=== PATIENT | female | born 1980 | race Caucasian/White ===

== ENCOUNTER → 2020-01-12 | Outpatient (CLI) | payer MEDICAID ==
[~2020-01-12] MED LIST: DULO20CA18 PO; ESCI20TA43 PO; KEPP250 PO; KEPP500 PO; PRAZ1CAP2 PO; TRAZ-251 PO; tylenol # 3 PO
== END | disposition home or self-care (01) ==
LOC: LAB 12:40
PROVIDERS: ATTEND Neurological Surgery
DX: Z01.818 Encounter for other preprocedural examination (principal); Z11.59 Encounter for screening for other viral diseases
CPT/HCPCS: C9803; U0003

== ENCOUNTER 2020-01-15 06:19 | Inpatient (IN) | payer MEDICAID ==
[~2020-01-15] VITALS: Ht 152.4 cm; Wt 73.5 kg
[2020-01-15] VITALS (50 sets, daily range): BP systolic 1–133; BP diastolic -2–75
[~2020-01-15 06:19] MED LIST changes: -KEPP250 PO
[2020-01-15] MEDS ORDERED: THROMBIN (BOVINE) 5000 UNITS/VIAL TOP ONE (07:06)
[2020-01-15] MEDS ORDERED: NORMAL SALINE 0.9% 10 ML SYR ONE (07:07)
[2020-01-15] MEDS ORDERED: SODIUM CHLORIDE 0.9% 2,000 ML ONE (07:07)
[2020-01-15] MEDS ORDERED: BACITRACIN 50,000 UNITS/VIAL ONE (07:07)
[2020-01-15] MEDS ORDERED: LIDOCAINE HCL/EPINEPHRINE 1%-EPI 1:100,000 20 ML VIAL ONE (07:07)
[2020-01-15] MEDS ORDERED: LACTATED RINGERS 1,000 ML IV SCH (07:30)
[2020-01-15 07:35] LABS: UCG SCREEN NEGATIVE
[2020-01-15] MEDS ORDERED: MORPHINE SULFATE 4 MG/ML CPJ (NOT FOR IM USE) IV PRN (10:15)
[2020-01-15] MEDS ORDERED: NICARDIPINE 100 MG in SODIUM CHLORIDE 0.9% 60 ML IV PRN (10:15)
[2020-01-15] MEDS ORDERED: HYDROMORPHONE HCL/PF 2MG/ML (OR) ONE (10:50)
[2020-01-15] MEDS ORDERED: ROCURONIUM BROMIDE 10MG/ML VIAL 5ML IV ONE (10:50)
[2020-01-15] MEDS ORDERED: CEFAZOLIN SODIUM 1000MG/VIAL ONE (10:51)
[2020-01-15] MEDS ORDERED: CLINDAMYCIN 600 MG in DEXTROSE 5% WATER 50 ML IV SCH (11:15)
[2020-01-15] MEDS ORDERED: HYDRALAZINE 20MG/ML VIAL ONE ×2 (11:23→12:54)
[2020-01-15] MEDS ORDERED: VECURONIUM BROMIDE 10 MG/VIAL IV ONE (11:43)
[2020-01-15] MEDS ORDERED: METOPROLOL TARTRATE 5MG/5ML VIAL IV ONE (11:43)
[2020-01-15] MEDS ORDERED: NEOSTIGMINE METHYLSULFATE 1MG/ML 10 ML VIAL ONE (12:17)
[2020-01-15] MEDS ORDERED: GLYCOPYRROLATE 0.2 MG/ML 2ML VIAL ONE (12:18)
[2020-01-15] MEDS ORDERED: HYDROMORPHONE HCL/PF 2MG/ML CPJ IV SCH (12:45)
[2020-01-15] MEDS ORDERED: ONDANSETRON INJ IV PRN (13:00)
[2020-01-15] MEDS ORDERED: NALOXONE INJ IV PRN (13:00)
[2020-01-15] MEDS: DEXT 5%/LACTATED RINGERS 1,000 ML IV SCH ×2 (13:15→23:01)
[2020-01-15] MEDS: HYDROMORPHONE PCA 10MG/50ML IV PRN (13:20)
[2020-01-15] MEDS: DEXAMETHASONE 4MG/ML 1ML VIAL IV SCH ×3 (13:33→23:19)
[2020-01-15] MEDS: CLINDAMYCIN 600MG PREMIX 50 ML IV SCH ×2 (13:34→21:48)
[2020-01-15] MEDS ORDERED: IPRATROPIUM/ALBUTEROL 0.5-3(2.5)MG/3ML NEB HHN PRN (16:00)
[2020-01-15] MEDS: LEVETIRACETAM 500MG TABLET PO SCH (20:12)
[2020-01-15] MEDS: DIPHENHYDRAMINE INJ IV PRN (20:45)
[2020-01-16] VITALS (61 sets, daily range): BP systolic 0–151; BP diastolic -1–100
[2020-01-16] MEDS: CLINDAMYCIN 600MG PREMIX 50 ML IV SCH ×2 (06:01→14:00)
[2020-01-16] MEDS: DEXAMETHASONE 4MG/ML 1ML VIAL IV SCH ×3 (06:01→18:19)
[2020-01-16 06:15] LABS: HEMATOCRIT. 32.2 % (36.0-48.0); HEMOGLOBIN. 11.1 g/dL (12.0-16.0); MEAN CORPUSCULAR HEMOGLOBIN 29.9 pg (28.0-32.0); MEAN CORPUSCULAR VOLUME 86.5 fL (81.0-99.0); MEAN PLATELET VOLUME 8.2 fl (7.4-10.4); PLATELET 267 x1000/uL (130-400); RED BLOOD CELL COUNT 3.72 mill/uL (4.2-5.4); RED CELL DISTRIBUTION WIDTH 15.3 % (11.6-14.6)
[2020-01-16 06:21] LABS: CHLORIDE 109 mEq/L (98-107)
[2020-01-16] MEDS ORDERED: DIAZEPAM 5 MG TABLET PO NR (07:00)
[2020-01-16 08:51] LABS: PLATELET ESTIMATE NORMAL
[2020-01-16] MEDS: LEVETIRACETAM 500MG TABLET PO SCH ×2 (09:05→21:01)
[2020-01-16] MEDS: DEXT 5%/LACTATED RINGERS 1,000 ML IV SCH ×2 (12:13→18:11)
[2020-01-16] MEDS: DIPHENHYDRAMINE INJ IV PRN (18:25)
[2020-01-16] MEDS: FAMOTIDINE 20MG TABLET PO SCH (21:01)
[2020-01-17] VITALS (7 sets, daily range): BP systolic 101–136; BP diastolic 57–85
[2020-01-17] MEDS: DEXAMETHASONE 4MG/ML 1ML VIAL IV SCH ×4 (00:34→17:55)
[2020-01-17] MEDS: DIPHENHYDRAMINE INJ IV PRN (01:35)
[2020-01-17] MEDS: HYDROMORPHONE PCA 10MG/50ML IV PRN (03:15)
[2020-01-17] MEDS: DEXT 5%/LACTATED RINGERS 1,000 ML IV SCH ×2 (05:19→15:00)
[2020-01-17 08:26] LABS: HEMATOCRIT. 33.1 % (36.0-48.0); HEMOGLOBIN. 10.9 g/dL (12.0-16.0); MEAN CORPUSCULAR HEMOGLOBIN 28.9 pg (28.0-32.0); MEAN CORPUSCULAR VOLUME 87.5 fL (81.0-99.0); MEAN PLATELET VOLUME 8.6 fl (7.4-10.4); PLATELET 250 x1000/uL (130-400); RED BLOOD CELL COUNT 3.78 mill/uL (4.2-5.4); RED CELL DISTRIBUTION WIDTH 15.6 % (11.6-14.6)
[2020-01-17 08:44] LABS: CHLORIDE 106 mEq/L (98-107)
[2020-01-17] MEDS: LEVETIRACETAM 500MG TABLET PO SCH ×2 (08:51→20:04)
[2020-01-17] MEDS: DULOXETINE HCL 20MG DR CAPSULE PO SCH (08:52)
[2020-01-17] MEDS: HYDROCODONE/ACETAMINOPHEN 5/325MG TABLET PO PRN ×2 (11:46→20:08)
[2020-01-17] MEDS: LACTULOSE 20G/30ML UDC PO SCH ×2 (17:55→20:08)
[2020-01-17] MEDS: DOCUSATE SODIUM 100MG CAPSULE PO SCH (17:55)
[2020-01-17 19:22] LABS: PLATELET ESTIMATE NORMAL
[2020-01-17] MEDS: POLYETHYLENE GLYCOL 3350 (17GM) 1 DOSE PACK PO SCH (20:05)
[2020-01-18] VITALS: BP 144/94
[2020-01-18] MEDS: DEXAMETHASONE 4MG/ML 1ML VIAL IV SCH ×4 (01:04→18:13)
[2020-01-18] MEDS: FAMOTIDINE 20MG TABLET PO SCH ×2 (02:38→21:50)
[2020-01-18 04:00] VITALS: BP 144/63
[2020-01-18 06:17] LABS: HEMATOCRIT. 33.8 % (36.0-48.0); HEMOGLOBIN. 11.5 g/dL (12.0-16.0); LYMPHOCYTES % 8.1 % (20.0-50.0); MEAN CORPUSCULAR HEMOGLOBIN 29.4 pg (28.0-32.0); MEAN CORPUSCULAR VOLUME 86.6 fL (81.0-99.0); MEAN PLATELET VOLUME 8.2 fl (7.4-10.4); MONOCYTES % 3.3 % (2.0-8.0); NEUTROPHILS % 88.6 % (40.0-76.0); PLATELET 262 x1000/uL (130-400); RED CELL DISTRIBUTION WIDTH 15.2 % (11.6-14.6)
[2020-01-18 06:36] LABS: CHLORIDE 105 mEq/L (98-107)
[2020-01-18 08:00] VITALS: BP 127/72
[2020-01-18] MEDS: LACTULOSE 20G/30ML UDC PO SCH ×3 (08:42→21:51)
[2020-01-18] MEDS: DULOXETINE HCL 20MG DR CAPSULE PO SCH (08:42)
[2020-01-18] MEDS: DOCUSATE SODIUM 100MG CAPSULE PO SCH ×2 (08:42→18:14)
[2020-01-18] MEDS: LEVETIRACETAM 500MG TABLET PO SCH ×2 (08:42→21:51)
[2020-01-18] MEDS: HYDROCODONE/APAP 7.5/325MG 1 TAB TABLET PO PRN ×2 (08:43→18:13)
[2020-01-18 12:00] VITALS: BP 121/77
[2020-01-18 16:00] VITALS: BP 133/76
[2020-01-18 20:00] VITALS: BP 134/81
[2020-01-18] MEDS: GUAIFENESIN 600MG ER TABLET PO SCH (21:50)
[2020-01-18] MEDS: POLYETHYLENE GLYCOL 3350 (17GM) 1 DOSE PACK PO SCH (21:51)
[2020-01-18] MEDS: DEXT 5%/LACTATED RINGERS 1,000 ML IV SCH (22:14)
[2020-01-19] VITALS: BP 125/89
[2020-01-19] MEDS: DEXAMETHASONE 4MG/ML 1ML VIAL IV SCH ×4 (00:12→18:00)
[2020-01-19] MEDS: HYDROCODONE/APAP 7.5/325MG 1 TAB TABLET PO PRN ×4 (00:14→20:56)
[2020-01-19 04:00] VITALS: BP 132/81
[2020-01-19] MEDS: DEXT 5%/LACTATED RINGERS 1,000 ML IV SCH ×2 (07:00→17:00)
[2020-01-19 08:00] VITALS: BP 128/87
[2020-01-19] MEDS: GUAIFENESIN 600MG ER TABLET PO SCH ×2 (08:51→20:55)
[2020-01-19] MEDS: DULOXETINE HCL 20MG DR CAPSULE PO SCH (08:51)
[2020-01-19] MEDS: DOCUSATE SODIUM 100MG CAPSULE PO SCH ×2 (08:51→17:58)
[2020-01-19] MEDS: LEVETIRACETAM 500MG TABLET PO SCH ×2 (08:51→20:55)
[2020-01-19] MEDS: LACTULOSE 20G/30ML UDC PO SCH ×3 (08:52→17:00)
[2020-01-19 08:58] LABS: HEMATOCRIT. 35.3 % (36.0-48.0); HEMOGLOBIN. 12.3 g/dL (12.0-16.0); LYMPHOCYTES % 13.4 % (20.0-50.0); MEAN CORPUSCULAR HEMOGLOBIN 29.7 pg (28.0-32.0); MEAN CORPUSCULAR VOLUME 85.1 fL (81.0-99.0); MEAN PLATELET VOLUME 8.1 fl (7.4-10.4); MONOCYTES % 7.3 % (2.0-8.0); NEUTROPHILS % 79.3 % (40.0-76.0); PLATELET 271 x1000/uL (130-400); RED BLOOD CELL COUNT 4.15 mill/uL (4.2-5.4); RED CELL DISTRIBUTION WIDTH 15.4 % (11.6-14.6)
[2020-01-19 09:41] LABS: CHLORIDE 101 mEq/L (98-107)
[2020-01-19 12:00] VITALS: BP 130/78
[2020-01-19 16:00] VITALS: BP 138/89
[2020-01-19 20:00] VITALS: BP 108/80
[2020-01-19] MEDS: FAMOTIDINE 20MG TABLET PO SCH (20:55)
[2020-01-19] MEDS: POLYETHYLENE GLYCOL 3350 (17GM) 1 DOSE PACK PO SCH (20:57)
[2020-01-20] MEDS: DEXT 5%/LACTATED RINGERS 1,000 ML IV SCH ×2 (03:00→12:28)
[2020-01-20] MEDS: HYDROCODONE/APAP 7.5/325MG 1 TAB TABLET PO PRN ×2 (03:55→09:59)
[2020-01-20 04:00] VITALS: BP 112/74
[2020-01-20] MEDS: DEXAMETHASONE 4MG/ML 1ML VIAL IV SCH ×2 (05:22)
[2020-01-20 07:36] LABS: HEMATOCRIT. 38.7 % (36.0-48.0); HEMOGLOBIN. 13.2 g/dL (12.0-16.0); MEAN CORPUSCULAR HEMOGLOBIN 29.4 pg (28.0-32.0); MEAN CORPUSCULAR VOLUME 86.1 fL (81.0-99.0); MEAN PLATELET VOLUME 8.1 fl (7.4-10.4); PLATELET 268 x1000/uL (130-400); RED CELL DISTRIBUTION WIDTH 15.5 % (11.6-14.6)
[2020-01-20 08:00] VITALS: BP 120/64
[2020-01-20] MEDS: GUAIFENESIN 600MG ER TABLET PO SCH (09:01)
[2020-01-20] MEDS: LEVETIRACETAM 500MG TABLET PO SCH (09:01)
[2020-01-20] MEDS: DULOXETINE HCL 20MG DR CAPSULE PO SCH (09:01)
[2020-01-20] MEDS: DOCUSATE SODIUM 100MG CAPSULE PO SCH (09:01)
[2020-01-20 09:12] LABS: CHLORIDE 100 mEq/L (98-107)
[2020-01-20] MEDS ORDERED: HYDR-4001 MT (11:55)
[2020-01-20 12:00] VITALS: BP 110/68
[2020-01-20 13:19] LABS: PLATELET ESTIMATE NORMAL
[2020-01-20 14:16] VITALS: BP 110/68
== END 2020-01-20 15:26 | disposition home health service (06) | DRG 321 ==
LOC: OR 06:19 → MICUNO 06:20 → 6EST 01-17 02:41
PROVIDERS: ADMIT Neurological Surgery; ATTEND Neurological Surgery
PROC: 0RG10A0 Fusion of Cervical Vertebral Joint with Interbody Fusion Device, Anterior Approach, Anterior Column, Open Approach (ICD-10-PCS; principal; 2020-01-15)
PROC: 0RB30ZZ Excision of Cervical Vertebral Disc, Open Approach (ICD-10-PCS; 2020-01-15)
PROC: 00NW0ZZ Release Cervical Spinal Cord, Open Approach (ICD-10-PCS; 2020-01-15)
PROC: 0PH304Z Insertion of Internal Fixation Device into Cervical Vertebra, Open Approach (ICD-10-PCS; 2020-01-15)
PROC: 4A11X4Z Monitoring of Peripheral Nervous Electrical Activity, External Approach (ICD-10-PCS; 2020-01-15)
DX: M47.12 Other spondylosis with myelopathy, cervical region (principal); M48.02 Spinal stenosis, cervical region; G82.50 Quadriplegia, unspecified; M50.223 Other cervical disc displacement at C6-C7 level; D64.9 Anemia, unspecified; D72.829 Elevated white blood cell count, unspecified; F32.9 Major depressive disorder, single episode, unspecified; G89.4 Chronic pain syndrome; R13.10 Dysphagia, unspecified; G95.20 Unspecified cord compression; G40.909 Epilepsy, unspecified, not intractable, without status epilepticus; M47.22 Other spondylosis with radiculopathy, cervical region; M50.023 Cervical disc disorder at C6-C7 level with myelopathy; R53.81 Other malaise; I69.351 Hemiplegia and hemiparesis following cerebral infarction affecting right dominant side; Z79.899 Other long term (current) drug therapy; Z88.0 Allergy status to penicillin; Z88.8 Allergy status to other drugs, medicaments and biological substances; Z98.1 Arthrodesis status; Z82.49 Family history of ischemic heart disease and other diseases of the circulatory system; Z83.3 Family history of diabetes mellitus; Z98.891 History of uterine scar from previous surgery; Z68.31 Body mass index [BMI] 31.0-31.9, adult; E44.0 Moderate protein-calorie malnutrition; E87.8 Other disorders of electrolyte and fluid balance, not elsewhere classified; E83.51 Hypocalcemia
CPT/HCPCS: 36415; 70360; 71045; 72040; 72141; 76000; 80048; 80053; 81025; 85025; 86850; 86900; 92610; 95863; 95925; 95926; 95928; 95929; 95940; 97110; 97116; 97162; 97166; 97530; 97535; C1713; J0360; J0690; J1100; J1170; J1200; J2405; J2710; J3490; J7030; J7050; J7060; J7121; L0172

== ENCOUNTER 2020-12-29 18:29 | Emergency (ER) | payer MEDICAID ==
[~2020-12-29] VITALS: Ht 152.4 cm; Wt 68.0 kg
[~2020-12-29 18:29] MED LIST changes: +ESCI20TA37 PO; -ESCI20TA43 PO; +HYDR-4001 MT
[2020-12-29 19:11] VITALS: BP 139/79
[2020-12-29] MEDS ORDERED: TRAMADOL 50MG TABLET PO ONE (19:15)
[2020-12-29] MEDS ORDERED: TRAM50TA3 MT (20:18)
== END 2020-12-29 21:13 | disposition home or self-care (01) ==
LOC: ER 18:29
DX: S16.1XXA Strain of muscle, fascia and tendon at neck level, initial encounter (principal); X58.XXXA Exposure to other specified factors, initial encounter; Y93.89 Activity, other specified; Y92.89 Other specified places as the place of occurrence of the external cause; Y99.8 Other external cause status; Z79.899 Other long term (current) drug therapy; Z88.0 Allergy status to penicillin
CPT/HCPCS: 99284

== ENCOUNTER 2020-12-30 14:04 | Emergency (ER) | payer MEDICAID ==
[~2020-12-30] VITALS: Ht 152.4 cm; Wt 68.0 kg
[~2020-12-30 14:04] MED LIST changes: +TRAM50TA3 MT
[2020-12-30 14:37] VITALS: BP 131/87
== END 2020-12-30 21:34 | disposition left against medical advice (07) ==
LOC: ER 14:04
DX: Z53.21 Procedure and treatment not carried out due to patient leaving prior to being seen by health care provider (principal)